=== PATIENT | female | born 1945 | race Two or more races ===

== ENCOUNTER 2024-12-05 18:52 | Inpatient (IN) | payer OTHER ==
[~2024-12-05] VITALS: Ht 157.5 cm; Wt 52.1 kg
[~2024-12-05 18:52] MED LIST: ASPI-1450 PO; ATOR20TA PO; CETI-450 PO; FLUT16SP NASAL; LEVO50 PO; MELO-107 PO; METO25 PO; OMEP-148 PO
[2024-12-05] MEDS: DEXTROSE 50%-WATER 25 GM/50 ML SYRINGE IVP ONE (18:56)
[2024-12-05] MEDS ORDERED: IOHEXOL 350 MG/ML 100 ML VIAL ONE (19:06)
[2024-12-05] MEDS ORDERED: SODIUM CHLORIDE 0.9% 100 ML ONE (19:06)
[2024-12-05 19:34] LABS: ANION GAP 16 mmol/L (8-16); CALCIUM, TOTAL 8.5 mg/dL (8.8-10.5); CARBON DIOXIDE 19 mmol/L (22-29); CHLORIDE 106 mmol/L (98-107); CREATININE 0.82 mg/dL (0.60-1.30); GLOMERULAR FILTR. RATE CALC > 60 mL/min (>60); GLUCOSE,RANDOM 198 mg/dL (70-110); POTASSIUM 4.6 mmol/L (3.5-5.1); SODIUM SERUM 141 mmol/L (136-145); UREA NITROGEN, BLOOD 18 mg/dL (7-18)
[2024-12-05 19:41] LABS: BASOPHILS % (AUTO) 0.2 % (0.0-2.0); EOSINOPHILS % (AUTO) 0 % (1.0-6.0); HEMATOCRIT 43.5 % (36-46); HEMOGLOBIN 14.3 g/dL (12.0-16.0); LYMPHOCYTES # (AUTO) 1.1 K/uL (1.0-4.8); LYMPHOCYTES % (AUTO) 14.1 % (22.0-44.0); MEAN CORPUSCULAR HEMOGLOBIN 30.1 pg (26.0-34.0); MEAN CORPUSCULAR HGB CONC 32.9 G/dL (31.0-37.0); MEAN CORPUSCULAR VOLUME 91 fL (80-100); MONOCYTES # (AUTO) 0.4 K/uL (0.1-1.0); MONOCYTES % (AUTO) 5.6 % (2.0-9.0); NEUTROPHILS # (AUTO) 6.1 K/uL (1.8-7.7); NEUTROPHILS % (AUTO) 80.1 % (40.0-70.0); PLATELET COUNT (AUTO) 152 K/uL (150-450); RED BLOOD CELL COUNT(AUTO) 4.76 MIL/uL (4.00-5.20); RED CELL DISTRIBUTION WIDTH 14.3 % (11.5-14.5); WHITE BLOOD COUNT (AUTO) 7.6 K/uL (4.5-11.0)
[2024-12-05 19:43] LABS: ALANINE AMINOTRANSFERASE 20 U/L (12-78); ALBUMIN 3.3 g/dL (3.4-5.0); ALKALINE PHOSPHATASE 58 U/L (46-116); ASPARTATE AMINOTRANSFERASE 27 U/L (15-37); BILIRUBIN,TOTAL 0.9 mg/dL (0.1-1.0); CHOL/HDL RATIO 2.3 (3.9-5.7); CHOLESTEROL 134 mg/dL (131-200); HDL CHOLESTEROL 59 mg/dL (40-60); LDL CHOL (CALC.) 67 mg/dL (0-130); TOTAL PROTEIN, SERUM 6.5 g/dL (6.4-8.2); TRIGLYCERIDES 41 mg/dL (15-150); TROPONIN I-HIGH SENSITIVITY 28 ng/L (<51)
[2024-12-05] MEDS ORDERED: ATORVASTATIN CALCIUM 20 MG TABLET PO SCH (20:00)
[2024-12-05] MEDS: ATORVASTATIN CALCIUM 40 MG TABLET PO SCH (20:28)
[2024-12-05] MEDS: ASPIRIN 81 MG CHEWABLE TABLET PO ONE (20:28)
[2024-12-05] MEDS: CLOPIDOGREL BISULFATE 75 MG TABLET PO ONE (20:28)
[2024-12-05] MEDS: METOPROLOL TARTRATE 25 MG TABLET PO SCH (20:29)
[2024-12-05] MEDS: SODIUM CHLORIDE 0.9% 1,750 ML IV ONE (20:35)
[2024-12-05] MEDS: ASPIRIN 300 MG RECTAL SUPPOSITORY PR ONE (20:35)
[2024-12-05] MEDS: HEPARIN SODIUM,PORCINE 5,000 UNITS/ML VIAL SQ SCH (20:35)
[2024-12-05] MEDS: CefTRIAXone 1 GM/DEXTROSE 50 ML IV ONE (20:47)
[2024-12-05 21:12] LABS: LACTIC ACID 1.3 mmol/L (0.4-2.0)
[2024-12-06 00:05] VITALS: BP 152/82; PULSE 80; RESP 18; TEMP 97.6; O2SAT 97
[2024-12-06 02:44] LABS: TROPONIN I-HIGH SENSITIVITY 34 ng/L (<51)
[2024-12-06] MEDS: DEXTROSE 50%-WATER 25 GM/50 ML SYRINGE IVP ONE (05:19)
[2024-12-06] MEDS: DEXTROSE 5%-LACTATED RINGERS 1,000 ML IV ONE (06:36)
[2024-12-06 06:50] LABS: CHOL/HDL RATIO 2.3 (3.9-5.7)
[2024-12-06 06:51] LABS: TROPONIN I-HIGH SENSITIVITY 32 ng/L (<51)
[2024-12-06] MEDS: ASPIRIN 81 MG CHEWABLE TABLET PO SCH (09:00)
[2024-12-06] MEDS: CLOPIDOGREL BISULFATE 75 MG TABLET PO SCH (09:00)
[2024-12-06 09:41] LABS: GLUCOMETER DEV NAME(LOC) 5N.2C; GLUCOSE,POINT OF CARE 113 MG/DL (70-110)
[2024-12-06 09:41] LABS: GLUCOMETER DEV NAME(LOC) 5N.2C; GLUCOSE,POINT OF CARE 65 MG/DL (70-110)
[2024-12-06] MEDS: SODIUM CHLORIDE 0.9% 500 ML IV ONE (12:45)
[2024-12-06 14:55] VITALS: BP 164/95; PULSE 92; RESP 20; TEMP 97.8; O2SAT 98
[2024-12-06 16:44] VITALS: BP 156/96; PULSE 79; RESP 18; TEMP 98.2; O2SAT 99
[2024-12-06 17:56] LABS: GLUCOMETER DEV NAME(LOC) 5N.2C; GLUCOSE,POINT OF CARE 97 MG/DL (70-110)
[2024-12-06 20:35] VITALS: O2SAT 0
[2024-12-06 23:14] VITALS: BP 164/77; PULSE 68; RESP 20; O2SAT 98
[2024-12-07 00:51] LABS: GLUCOMETER DEV NAME(LOC) 5N.2C; GLUCOSE,POINT OF CARE 118 MG/DL (70-110)
[2024-12-07] MEDS ORDERED: HydrALAZINE HCL 20 MG/ML VIAL IVP PRN (01:15)
[2024-12-07] MEDS ORDERED: IOHEXOL 350 MG/ML 100 ML VIAL ONE (02:05)
[2024-12-07 03:52] VITALS: BP 154/79; PULSE 68; RESP 18; TEMP 98.4; O2SAT 98
[2024-12-07 06:11] LABS: GLUCOMETER DEV NAME(LOC) 5N.2C; GLUCOSE,POINT OF CARE 133 MG/DL (70-110)
[2024-12-07 08:17] VITALS: BP 158/98; PULSE 75; RESP 16; TEMP 97.7; O2SAT 95
[2024-12-07] MEDS: DEXTROSE 5%-LACTATED RINGERS 1,000 ML IV SCH (10:00)
[2024-12-07] MEDS ORDERED: 0.9% SODIUM CHLORIDE 10 ML SYRINGE IVP ONE (10:08)
[2024-12-07] MEDS ORDERED: SODIUM CHLORIDE 0.9% 100 ML ONE (10:09)
[2024-12-07 11:41] VITALS: BP 175/95; PULSE 97; RESP 18; TEMP 97.6; O2SAT 97
[2024-12-07 12:11] VITALS: BP 154/80; PULSE 98
[2024-12-07 15:53] VITALS: BP 151/99; PULSE 76; RESP 18; TEMP 97.5; O2SAT 97
[2024-12-07 18:21] LABS: GLUCOMETER DEV NAME(LOC) 5N.2C; GLUCOSE,POINT OF CARE 121 MG/DL (70-110)
[2024-12-07 18:21] LABS: GLUCOMETER DEV NAME(LOC) 5N.2C; GLUCOSE,POINT OF CARE 105 MG/DL (70-110)
[2024-12-07 20:30] VITALS: BP 165/86; PULSE 95; RESP 16; TEMP 98.5; O2SAT 96
[2024-12-08 01:33] VITALS: BP 130/72; PULSE 114; RESP 18; TEMP 97.5; O2SAT 98
[2024-12-08 01:42] LABS: GLUCOMETER DEV NAME(LOC) 5S.2D; GLUCOSE,POINT OF CARE 110 MG/DL (70-110)
[2024-12-08 03:16] VITALS: BP 151/82; PULSE 97; RESP 18; TEMP 98.1; O2SAT 98
[2024-12-08] MEDS: LEVOTHYROXINE SODIUM 50 MCG TABLET PO SCH (05:33)
[2024-12-08 06:35] LABS: GLUCOMETER DEV NAME(LOC) 5S.2D; GLUCOSE,POINT OF CARE 111 MG/DL (70-110)
[2024-12-08 07:31] LABS: ANION GAP 12 mmol/L (8-16); CALCIUM, TOTAL 8.6 mg/dL (8.8-10.5); CARBON DIOXIDE 25 mmol/L (22-29); CHLORIDE 108 mmol/L (98-107); CREATININE 0.55 mg/dL (0.60-1.30); GLOMERULAR FILTR. RATE CALC > 60 mL/min (>60); GLUCOSE,RANDOM 110 mg/dL (70-110); POTASSIUM 3.1 mmol/L (3.5-5.1); SODIUM SERUM 145 mmol/L (136-145); UREA NITROGEN, BLOOD 5 mg/dL (7-18)
[2024-12-08 07:42] LABS: BASOPHILS % (AUTO) 0.4 % (0.0-2.0); HEMATOCRIT 43.6 % (36-46); HEMOGLOBIN 14.9 g/dL (12.0-16.0); LYMPHOCYTES # (AUTO) 1.6 K/uL (1.0-4.8); LYMPHOCYTES % (AUTO) 25.4 % (22.0-44.0); MEAN CORPUSCULAR HEMOGLOBIN 30.5 pg (26.0-34.0); MEAN CORPUSCULAR HGB CONC 34.2 G/dL (31.0-37.0); MEAN CORPUSCULAR VOLUME 89 fL (80-100); MONOCYTES # (AUTO) 0.7 K/uL (0.1-1.0); MONOCYTES % (AUTO) 11.5 % (2.0-9.0); NEUTROPHILS % (AUTO) 61.7 % (40.0-70.0); PLATELET COUNT (AUTO) 173 K/uL (150-450); RED BLOOD CELL COUNT(AUTO) 4.88 MIL/uL (4.00-5.20); RED CELL DISTRIBUTION WIDTH 14.2 % (11.5-14.5); WHITE BLOOD COUNT (AUTO) 6.5 K/uL (4.5-11.0)
[2024-12-08 08:00] VITALS: BP 146/64; PULSE 87; RESP 18; TEMP 97.9; O2SAT 97
[2024-12-08 12:00] VITALS: BP 148/85; PULSE 89; RESP 18; TEMP 97.8; O2SAT 97
[2024-12-08 13:11] LABS: HEMOGLOBIN A1C 5.1 % (3.8-5.6)
[2024-12-08 16:00] VITALS: BP 140/88; PULSE 87; RESP 18; TEMP 97.8; O2SAT 96
[2024-12-08 17:10] LABS: GLUCOMETER DEV NAME(LOC) 5N.2C; GLUCOSE,POINT OF CARE 145 MG/DL (70-110)
[2024-12-08 22:01] LABS: GLUCOMETER DEV NAME(LOC) 5S.2D; GLUCOSE,POINT OF CARE 135 MG/DL (70-110)
== END 2024-12-08 19:30 | disposition short-term general hospital (02) | DRG 871 ==
LOC: EMS 18:52 → EDH 19:45 → 5N 22:55
PROVIDERS: ADMIT Internal Medicine; ATTEND Internal Medicine
DX: A41.9 Sepsis, unspecified organism (principal); G93.41 Metabolic encephalopathy; G45.9 Transient cerebral ischemic attack, unspecified; N17.9 Acute kidney failure, unspecified; E16.2 Hypoglycemia, unspecified; E03.9 Hypothyroidism, unspecified; E78.00 Pure hypercholesterolemia, unspecified; I12.9 Hypertensive chronic kidney disease with stage 1 through stage 4 chronic kidney disease, or unspecified chronic kidney disease; N18.9 Chronic kidney disease, unspecified; E27.8 Other specified disorders of adrenal gland; Z79.899 Other long term (current) drug therapy; Z79.02 Long term (current) use of antithrombotics/antiplatelets; Z79.82 Long term (current) use of aspirin
CPT/HCPCS: 70496; 70498; 71045; 74177; 76770; 80048; 80053; 80061; 82948; 82962; 83036; 83605; 83735; 84145; 84484; 85025; 85610; 85730; 86850; 86900; 86901; 87040; 93005; 93306; 93880; 96365; 96375; 99285; J0360; J0696; J1644; J7040; J7050; 36415-L1; 36415-TC; 70450; 70450-TC